=== PATIENT | male | born 1975 | race Hispanic/Latino ===

== ENCOUNTER 2016-04-25 22:43 | Emergency (ER) | payer OTHER ==
[2016-04-26] MEDS ORDERED: PERCOCET 5/325 PO ONE (01:05)
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
[2016-04-26] MEDS ORDERED: ZOFRAN ODT PO ONE (03:00)
[2016-04-26] MEDS ORDERED: MORPHINE IM ONE (03:00)
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
[2016-04-26] MEDS ORDERED: TRIPLE ANTIBIOTIC TP ONE (04:28)
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
[2016-04-26 05:20] LABS: Bilirubin,Urine NEG (Negative); Blood,Urine MOD (Negative); Ketones,Urine NEG (Negative); Leukocyte Esterase,Urine NEG (Negative); Mucus,Urine FEW /HPF; Nitrite,Urine NEG (Negative); Protein,Urine <15 mg/dL mg/dL (Negative); Urobilinogen,Urine < 2.0 mg/dL (<2.0)
[2016-04-26] MEDS ORDERED: NACL 0.9% 1000 ML 1,000 ML IV ONE (05:52)
[2016-04-26 06:23] VITALS: BP 119/79
[2016-04-26 06:55] LABS: Hematocrit 43.9 % (35.5-45.6); Hemoglobin 14.4 gm/dl (11.8-15.2); Mean Corpuscular HGB Conc 33 % (32-34); Mean Corpuscular Hemoglobin 30 pg (28-32); Mean Corpuscular Volume 92 fl (84-94); Platelet Count 222 K/mm3 (140-440); Red Blood Count 4.75 M/mm3 (3.65-5.03); Red Cell Distribution Width 13.9 % (13.2-15.2); White Blood Count 9.3 K/mm3 (4.5-11.0)
[2016-04-26 07:04] LABS: INR 0.99 (0.87-1.13)
[2016-04-26 07:13] LABS: Anion Gap 20 mmol/L; Blood Urea Nitrogen 21 mg/dL (9-20); Calcium 9.3 mg/dL (8.4-10.2); Carbon Dioxide 22 mmol/L (22-30); Chloride 99.5 mmol/L (98-107); Glucose 96 mg/dL (75-100); Potassium 4.1 mmol/L (3.6-5.0); Sodium 137 mmol/L (137-145)
[2016-04-26] MEDS ORDERED: ZOFRAN IV ONE (07:51)
[2016-04-26] MEDS ORDERED: MORPHINE IV ONE (07:51)
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
--- NOTE | 2016-04-26 08:11 | Emergency Department Report ---
Blank Doc - Documentation Documentation: Patient was signed out to me by Dr. Pillai. Request was to follow-up with CT and lab results since UA had microscopic hematuria. CT abdomen and pelvis with IV contrast does not reveal any acute traumatic abnormality. Wrist splint ordered. Additional morphine was provided during ED stay. Patient will be prepped for discharge
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
== END 2016-04-26 08:50 | disposition home or self-care (01) ==
LOC: ED 22:43
DX: S52.501A Unspecified fracture of the lower end of right radius, initial encounter for closed fracture (principal); F17.200 Nicotine dependence, unspecified, uncomplicated; Z90.49 Acquired absence of other specified parts of digestive tract; V89.9XXA Person injured in unspecified vehicle accident, initial encounter; Y93.89 Activity, other specified; Y99.8 Other external cause status; Y92.89 Other specified places as the place of occurrence of the external cause
CPT/HCPCS: 29125; 36415; 70450; 72125; 73090; 73100; 73560; 74177; 80048; 81001; 85027; 85610; 96361; 96372; 96374; 96375; 99285; J2270; J2405; J7030; Q9967; A6250; Q0162